=== PATIENT | male | born 1940 | race Hispanic/Latino ===

== ENCOUNTER 2018-07-06 04:45 | Emergency (ER) | payer SELFPAY ==
--- NOTE | 2018-07-06 05:19 | EDPHY ---
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 HPI The patient presents with abdominal pain, difficulty urinating for the last 3 days. Patient reports that he has suprapubic abdominal pain and tenderness which started slowly 3 days ago and now has become constant. He has to go to the bathroom frequently though little urine comes out. He does report burning with urination. He also says he is constipated, last had a small bowel movement at about 8:00 p.m. Last night. He has not had any flank pain, fevers, chills, vomiting.. REVIEW OF SYSTEMS 10 systems were reviewed and negative with the exception of the elements mentioned in the history of present illness. PMHx: [facility] Hx: Here with his sister PHYSICAL General Appearance: Alert, no distress Eyes: Pupils equal and round no pallor or injection ENT, Mouth: Mucous membranes moist Respiratory: There are no retractions, lungs are clear to auscultation Cardiovascular: Regular rate and rhythm Gastrointestinal: Abdomen is soft and tender in the suprapubic region without rebound or guarding, no masses, bowel sounds normal Neurological: A&O, moves all extremities Skin: Warm and dry, no rashes Musculoskeletal: Neck is supple non tender Extremities: symmetrical, full range of motion Psychiatric: Patient is oriented X 3, there is no agitation (AlirezaiHarriett) Constitutional: Initial Vital Signs Temperature (C) 36.7 C 07/06/18 04:48 Heart Rate 76 07/06/18 04:48 Respiratory Rate 18 07/06/18 04:48 Blood Pressure 171/86 H 07/06/18 04:48 O2 Sat (%) 94 07/06/18 04:48 O2 Delivery Mode Room Air Allergies/Adverse Reactions: No Known Allergies Allergy (Unverified 07/06/18 04:53) Home Medications: Medication Instructions Recorded Tamsulosin HCl [Flomax 0.4 MG (*)] 0.4 mg PO DAILY #10 cap 07/06/18 levOFLOXACIN [Levofloxacin] 750 mg PO DAILY #7 tablet 07/06/18 Medical Decision Making Procedures: Bedside limited abdominal Ultrasound- performed and interpreted by me. Indication: Suprapubic abdominal pain Findings: Bladder is distended, volume measuring 900, no bladder mass is present , there is no pelvic free fluid Impression: Distended bladder (Harriett Burleson) Differential Diagnosis: 78-year-old male presents with urinary retention and dysuria with frequency. In the emergency department, bladder scan was performed which showed markedly enlarged bladder. Labs were checked and did reveal UA positive for nitrates though the patient was given a dose of ceftriaxone. CT scan was obtained for concern for constipation contributing to the patient's retention. CT showed enlarged prostate with bilateral hydroureter with no constipation. Nurses attempted to place Swann including coude without success. I have consulted with Dr. Corrales from Urology who will see the patient here in the emergency department and perform cystoscopy. (Harriett Burleson) Other Provider: Dr. Stafford has evaluated the patient and placed a Swann catheter. He will follow up with him in his clinic. (Cb Jain) - Data Points Laboratory Results: Laboratory Results 07/06/18 05:20 07/06/18 05:20 07/06/18 07/06/18 07/06/18 05:20 05:20 04:55 WBC 9.53 10^3/uL H 10^3/uL (3.80-9.50) RBC 4.62 10^6/uL 10^6/uL (4.40-6.38) Hgb 15.0 g/dL g/dL (13.7-17.5) Hct 42.7 % % (40.0-51.0) MCV 92.4 fL fL (81.5-99.8) MCH 32.5 pg pg (27.9-34.1) MCHC 35.1 g/dL g/dL (32.4-36.7) RDW 13.5 % % (11.5-15.2) Plt Count 241 10^3/uL 10^3/uL (150-400) MPV 10.0 fL fL (8.7-11.7) Neut % (Auto) 78.1 % H % (39.3-74.2) Lymph % (Auto) 14.5 % L % (15.0-45.0) [place] % (Auto) 6.6 % % (4.5-13.0) Eos % (Auto) 0.3 % L % (0.6-7.6) Baso % (Auto) 0.2 % L % (0.3-1.7) Nucleat RBC Rel Count 0.0 % % (0.0-0.2) Absolute Neuts (auto) 7.44 10^3/uL H 10^3/uL (1.70-6.50) Absolute Lymphs (auto) 1.38 10^3/uL 10^3/uL (1.00-3.00) Absolute Monos (auto) 0.63 10^3/uL 10^3/uL (0.30-0.80) Absolute Eos (auto) 0.03 10^3/uL 10^3/uL (0.03-0.40) Absolute Basos (auto) 0.02 10^3/uL 10^3/uL (0.02-0.10) Absolute Nucleated RBC 0.00 10^3/uL 10^3/uL (0-0.01) Immature Gran % 0.3 % % (0.0-1.1) Immature Gran # 0.03 10^3/uL 10^3/uL (0.00-0.10) Sodium 136 mEq/L mEq/L (135-145) Potassium 4.1 mEq/L mEq/L (3.3-5.0) Chloride 102 mEq/L mEq/L (97-110) Carbon Dioxide 24 mEq/l mEq/l (22-31) Anion Gap 10 mEq/L mEq/L (8-16) BUN 12 mg/dL mg/dL (7-23) Creatinine 1.1 mg/dL mg/dL (0.7-1.3) Estimated GFR > 60 Glucose 120 mg/dL H mg/dL (70-100) Calcium 9.9 mg/dL mg/dL (8.5-10.4) Urine Color NABIL Urine Appearance CLEAR Urine pH 6.0 (5.0-7.5) Ur Specific [place] 1.003 (1.002-1.030) Urine Protein NEGATIVE (NEGATIVE) Urine Ketones NEGATIVE (NEGATIVE) Urine Blood NEGATIVE (NEGATIVE) Urine Nitrate POSITIVE H (NEGATIVE) Urine Bilirubin NEGATIVE (NEGATIVE) Urine Urobilinogen NEGATIVE EU EU (0.2-1.0) Ur Leukocyte Esterase NEGATIVE (NEGATIVE) Urine RBC 1-3 /hpf /hpf (0-3) Urine WBC 1-3 /hpf /hpf (0-3) Ur Epithelial Cells NONE SEEN /lpf /lpf (NONE-1+) Urine Glucose NEGATIVE (NEGATIVE) Medications Given: Discontinued Medications Ceftriaxone Sodium/Dextrose (Rocephin 1 Gm (Premix)) 50 mls @ 100 mls/hr IV EDNOW ONE PRN Reason: Protocol Stop: 07/06/18 06:32 Last Admin: 07/06/18 06:20 Dose: 50 mls Departure - Departure Disposition: Home, Routine, Self-Care Clinical Impression: Urinary retention Urinary tract infection Qualifiers: Urinary tract infection type: acute cystitis Hematuria presence: without hematuria Qualified Code(s): N30.00 - Acute cystitis without hematuria Condition: Good Instructions: Urinary Retention in Men (ED), Urinary Tract Infection in Men (ED ) Referrals: Tan Corrales MD [Medical Doctor] - As per Instructions [facility],. [Clinic] - As per Instructions Reginaldo Stafford MD [Medical Doctor] - 5-7 days, call for appt. (one month for follow up) Prescriptions: levOFLOXACIN [Levofloxacin] 750 mg PO DAILY #7 tablet Tamsulosin HCl [Flomax 0.4 MG (*)] 0.4 mg PO DAILY #10 cap Print Language: Maori
[2018-07-06 05:34] LABS: PLATELET COUNT 241 10^3/uL (150-400)
[2018-07-06] MEDS ORDERED: IOPAMIDOL (ISOVUE-300) 100 ML BTL ONE (05:54)
[2018-07-06] MEDS ORDERED: LIDOCAINE 2% JELLY 20 ML (UROJECT) ONE ×2 (06:35→07:48)
--- NOTE | 2018-07-06 08:06 | PDCONSULT ---
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 From [place] 8 days ago and in retention. Seems to have had surgery trans urethral and not able to inform me of procedure. He has intermittent voiding and PVR of 900+ today. Labs reviewed and normal creat. Prepped and draped in normal fashion. meatal stenosis dilated urojet used 16 barrow passed into bladder and clear urine drained 6 ml provided for culture no tissue specimens, no complications see in office in one month for cysto to assess tract further
[2018-07-06 08:12] VITALS: BP 142/78
--- NOTE | 2018-07-06 09:16 | GCON ---
HISTORY OF PRESENT ILLNESS: I have been asked to see this 78-year-old gentleman in the emergency [facility] because they have been unable to pass catheter on him. Through a family member, the implication is that he came from [place] 8 days ago, and has been having difficulty voiding for some time, and so he was brought to the emergency room because of frequency. By history, he has had some previous genito urinary surgery, but he cannot define what that was. It was done in [place] 8 to 11 years ago. At th e present time, he denies fevers or chills, just having difficulty voiding. According of the chart, he has no known allergies and his home medications have been levofloxacin and tamsulosin. PHYSICAL EXAM: GENERAL: He is alert and oriented x3 via the employee representative. HEENT: He has no scleral icterus. LUNGS: Respiratory rate is normal with unlabored breathing. HEART: Regular rate and rhy thm. ABDOMEN: No rebound or guarding. His bladder is full on palpation. : Penis is suggestive of meatal stenosis. Some blood at the meatus from attempted previous catheterizations. EXTREMITIES: Lower extremities show no significant edema. PROCEDURE: After being prepped and draped in normal sterile fashion, I was able to pass a 16 Swann c atheter through the meatus which was stenotic, and then he had what appeared to be a urethral strictu re in the bulb of the urethra, and I was able to negotiate the catheter through that and a 10 cc ball oon inflated on the catheter. Urine was clear. I did aspirate 6 mL for culture and sensitivity be s ent from the ER, and ask that he have followup with us in the office in 1 month. No complications en countered. No specimen other than the urine for culture and sensitivity. /[id number]/MODL
== END 2018-07-06 08:50 | disposition home or self-care (01) ==
LOC: MERGE 04:45
PROC: 0T9B70Z Drainage of Bladder with Drainage Device, Via Natural or Artificial Opening (ICD-10-PCS; principal; 2018-07-06)
PROC: 4A0D7LZ Measurement of Urinary Volume, Via Natural or Artificial Opening (ICD-10-PCS; 2018-07-06)
DX: N30.00 Acute cystitis without hematuria (principal); R33.9 Retention of urine, unspecified; N35.9 Urethral stricture, unspecified
CPT/HCPCS: 96365; C1769; J0696; Q9967

== ENCOUNTER 2019-03-08 21:41 | Emergency (ER) | payer OTHER | END 2019-03-09 00:25 | disposition home or self-care (01) ==

== ENCOUNTER 2019-03-16 23:59 | Emergency (ER) | payer OTHER | END 2019-03-17 03:10 | disposition home or self-care (01) ==